=== PATIENT | male | born 1965 | race African-American/Black ===

== ENCOUNTER 2016-07-09 06:03 | Emergency (ER) | payer SELFPAY ==
[~2016-07-09] VITALS: Ht 167.6 cm; Wt 72.6 kg
--- NOTE | 2016-07-09 07:36 | Emergency Room Report ---
History of Present Illness General Chief Complaint: Lower Extremity Injury Source: Patient, EMS Present Illness HPI 51 YOM undomiciled presents with "bilateral feet pain for some time." Patient walks alot. Tried to treat with "street medicine" (cocaine) yesterday with mild improvement. Denies fever/chills, rash, history of DVT/PE. Denies DM, other medical problems. Patient asking us to "soak his feet." He can barely stay awake to complete HPI at this time; seems more interested in sleeping at this time. Allergies: Coded Allergies: No Known Allergies (Unverified , 07/09/16) Patient History Past Medical History: none Past Surgical History: none Pertinent Family History: none Social History: Reports: drug use, Denies: alcohol use, smoking Immunizations: UTD Reviewed Nursing Documentation: PMH: Agreed, PSxH: Agreed Review of Systems All Other Systems: negative except mentioned in HPI Physical Exam Vital Signs Date Time Temp Pulse Resp B/P Pulse Ox O2 Delivery O2 Flow Rate FiO2 07/09/16 06:09 98.1 90 16 149/85 96 Room Air Sp02 EP Interpretation: reviewed, normal General Appearance: normal inspection, well appearing, no apparent distress, alert, GCS 15, non-toxic Head: normocephalic, atraumatic Eyes: bilateral eye EOMI, bilateral eye PERRL ENT: normal ENT inspection, hearing grossly normal, normal voice Neck: normal inspection, full range of motion, supple, no bony tend Respiratory: normal inspection, lungs clear, normal breath sounds, no respiratory distress, no retraction, no wheezing Cardiovascular #1: regular rate, rhythm, no edema Gastrointestinal: normal inspection, normal bowel sounds, non tender, soft, no guarding, no hernia Genitourinary: no CVA tenderness Musculoskeletal: normal inspection, back normal, normal range of motion, Derek' s Sign negative Neurologic: normal inspection, alert, oriented x3, responsive, freight tallier III-XII nml as tested, motor strength/tone normal, speech normal Psychiatric: normal inspection, judgement/insight normal, mood/affect normal Skin: normal inspection, normal color, no rash, other - bilateral feet: warm, hyperasthesia to all over feet, ankles. No ulcers. No rash Medical Decision Making Diagnostic Impression: Primary Impression: Foot pain, bilateral ER Course Bilateral feet pain. VSS. Afebrile. No ulcer No rash Neuro exam normal for strength, power Likely malingering for residential, food Last Vital Signs Date Time Temp Pulse Resp B/P Pulse Ox O2 Delivery O2 Flow Rate FiO2 07/09/16 06:09 98.1 90 16 149/85 96 Room Air Status: improved Disposition: HOME, SELF-CARE Condition: Improved Referrals: NOT CHOSEN IPA/MD,REFERRING (PCP) Patient Instructions: Foot Contusion Additional Instructions: - STOP using cocaine - you could have a heart attack and from one single use - Try to wear clean socks as often as possible - check your feet for ulcers or rash regularly DIMAS RUIZ M.D. Jul 09, 2016 07:35
[2016-07-09 07:38] VITALS: BP 144/80
== END 2016-07-09 07:40 | disposition home or self-care (01) ==
LOC: EDBD 06:03 → EMR 06:58
DX: M79.672 Pain in left foot (principal); M79.671 Pain in right foot
CPT/HCPCS: 99282